=== PATIENT | male | born 1980 | race Caucasian/White ===

== ENCOUNTER → 2016-09-04 | Outpatient (CLI) | payer MEDICAID ==
[~2016-09-04] MED LIST: NOMEDS XX; PERCOCET1 TAB PO; PREDNISONE 20MG20 MG PO
[2016-09-04 15:08] LABS: HEMOGLOBIN 16.7 g/dL (14.1-18.0); LYMPH # 2.5 K/mm3 (0.7-4.5); LYMPH % 35.5 % (10-50)
[2016-09-04 15:26] LABS: BUN 12 mg/dL (7-18)
[2016-09-04 16:14] LABS: GFR (ESTIMATED) 128 ML/MIN (>60)
[2016-09-06 09:38] LABS: HBsAg Screen Negative (Negative); Hep A Ab, IgM Negative (Negative); Hep B Core Ab, IgM Negative (Negative); Hep C Virus Ab 0.1 (0.0-0.9)
[2016-09-06 10:39] LABS: Vitamin B12 452 pg/mL (211-946)
[2016-09-09 03:41] LABS: 1,25-Dihydroxy, Vitamin D-2 <10 pg/mL (.); 1,25-Dihydroxy, Vitamin D-3 41 pg/mL (.); Total 1,25-Dihydroxy,Vitamin D 42 pg/mL (.)
== END ==
LOC: LAB 14:46
PROVIDERS: Nurse Practitioner Family
DX: R55 Syncope and collapse (principal); F19.10 Other psychoactive substance abuse, uncomplicated; Z00.00 Encounter for general adult medical examination without abnormal findings